=== PATIENT | female | born 1970 | race Caucasian/White ===

== ENCOUNTER 2023-01-12 05:53 | Day surgery (SDC) | payer BC ==
[~2023-01-12 05:53] MED LIST: Sodium Chloride 0.9% 10 ML Syringe FLUSH PRN; Sodium Chloride 0.9% 10 ML Syringe FLUSH SCH
[2023-01-12] MEDS: Dextrose 5%-0.45% NaCl 1,000 ML IV SCH (06:30)
[2023-01-12] MEDS ORDERED: Midazolam 1 MG/ML 2 ML SDV ONE (07:25)
[2023-01-12] MEDS ORDERED: fentaNYL 100 MCG/2 ML SDV ONE (07:25)
[2023-01-12] MEDS: fentaNYL 100 MCG/2 ML SDV IV ONE ×6 (07:30→07:41)
[2023-01-12] MEDS: Midazolam 1 MG/ML 2 ML SDV IV ONE ×5 (07:32→07:35)
[2023-01-12] MEDS: diphenhydrAMINE 25 MG Tab PO ONE (09:12)
[2023-01-12 10:43] VITALS: BP 118/76; PULSE 68
== END 2023-01-12 10:00 | disposition home or self-care (01) ==
LOC: DL.ENDO 05:53
PROVIDERS: ATTEND Internal Medicine Gastroenterology
DX: Z12.11 Encounter for screening for malignant neoplasm of colon (principal); D12.5 Benign neoplasm of sigmoid colon; I10 Essential (primary) hypertension; E78.5 Hyperlipidemia, unspecified; Z90.49 Acquired absence of other specified parts of digestive tract; E66.09 Other obesity due to excess calories; Z68.29 Body mass index [BMI] 29.0-29.9, adult
CPT/HCPCS: 45385; A9270; J2250; J3010; J7042